=== PATIENT | female | born 1960 | race Two or more races ===

== ENCOUNTER 2022-12-24 19:15 | Emergency (ER) | payer OTHER ==
[~2022-12-24] VITALS: Ht 162.6 cm; Wt 64.0 kg
--- NOTE | 2022-12-24 20:09 | NUR ---
[facility] AT PT'S BEDSIDE
--- NOTE | 2022-12-24 20:32 | NUR ---
[facility] GO (SON)
[2022-12-24 20:58] LABS: BASOPHILS % (AUTO) 0.2 % (0.0-2.0); EOSINOPHILS % (AUTO) 0.1 % (0.0-6.0); HEMATOCRIT 39 % (33-45); HEMOGLOBIN 12.5 g/dL (11.5-14.8); LYMPHOCYTES % (AUTO) 9.5 % (20.0-44.0); MEAN CORPUSCULAR HGB CONC 33 g/dl (31.0-36.0); MEAN CORPUSCULAR VOLUME 88 fL (82-100); MONOCYTES # (AUTO) 1.3 K/uL (0.1-1.30); MONOCYTES % (AUTO) 6.2 % (2.0-12.0); NEUTROPHILS # (AUTO) 18.1 K/uL (1.8-8.9); PLATELET COUNT (AUTO) 288 K/uL (150-450); WHITE BLOOD COUNT (AUTO) 21.6 K/uL (4.3-11.0)
[2022-12-24] MEDS ORDERED: MORPHINE SULFATE INJ 4 MG/ML DISP.SYRIN ONE (21:01)
[2022-12-24] MEDS ORDERED: LORAZEPAM INJ 2 MG/ML VIAL ONE (21:01)
[2022-12-24] MEDS ORDERED: ONDANSETRON HCL/PF 4 MG/2 ML VIAL ONE (21:01)
[2022-12-24] MEDS: IV NS 0.9% 1,000 ML BAG IV ONE (21:06)
[2022-12-24] MEDS: LORAZEPAM INJ 2 MG/ML VIAL IV ONE (21:06)
[2022-12-24] MEDS: MORPHINE SULFATE INJ 2 MG/ML DISP.SYRIN IV ONE (21:06)
[2022-12-24] MEDS: ONDANSETRON HCL/PF 4 MG/2 ML VIAL IVP ONE (21:07)
[2022-12-24 21:09] LABS: CALCIUM, SERUM 8.7 mg/dL (8.5-10.1); CARBON DIOXIDE 25 mmol/L (21-32); CHLORIDE 106 mmol/L (98-107); CREATININE 0.9 mg/dL (0.6-1.3); GLUCOSE 162 mg/dL (74-106); POTASSIUM 3.1 mmol/L (3.5-5.1); SODIUM SERUM 140 mmol/L (136-145); UREA NITROGEN, BLOOD 28 mg/dL (7-18)
[2022-12-24 21:15] LABS: ALANINE AMINOTRANSFERASE 39 U/L (12-78); ALBUMIN 3.6 g/dL (3.4-5.0); ALKALINE PHOSPHATASE 95 U/L (46-116); ASPARTATE AMINOTRANSFERASE 33 U/L (15-37); BILIRUBIN,DIRECT 0.1 mg/dL (0.0-0.2); BILIRUBIN,TOTAL 0.3 mg/dL (0.2-1.0); LIPASE 119 U/L (73-393); TOTAL PROTEIN, SERUM 7.1 g/dL (6.4-8.2)
[2022-12-24] MEDS ORDERED: IV NS 0.9% 250 ML IV ONE (21:16)
[2022-12-24] MEDS ORDERED: IOHEXOL-300 100 ML VIAL IV ONE (21:16)
[2022-12-24] MEDS ORDERED: CT SWABBABLE VALVE TRANS SET 1 EA INFUS.SET MC ONE (21:16)
--- NOTE | 2022-12-24 21:27 | NUR ---
PT TAKEN TO CT VIA [facility]
--- NOTE | 2022-12-24 22:41 | NUR ---
[facility]WAIT[facility]
--- NOTE | 2022-12-24 23:00 | NUR ---
CALLED [facility] SPOKE TO [place]ERTO, FAXED CLINICALS AND FACESHEET
[2022-12-24] MEDS ORDERED: HYDROMORPHONE 1 MG/1 ML DISP.SYRIN ONE (23:17)
[2022-12-24] MEDS: HYDROMORPHONE 1 MG/1 ML DISP.SYRIN IV ONE (23:18)
--- NOTE | 2022-12-24 23:38 | NUR ---
CALLED [facility] REGARDING TRANSFER FOR HIGHER LEVEL OF CARE. FAXED FACE SHEET AND CLINCALS
--- NOTE | 2022-12-24 23:50 | NUR ---
CALLED [facility] SPOKE TO [facility]
--- NOTE | 2022-12-24 23:51 | NUR ---
CALLED [facility], [facility]
--- NOTE | 2022-12-25 00:06 | NUR ---
[facility] CALLED TO INFORM THAT THEIR NEUROLOGIST DR LINDA COURTNEY DECLINED THIS CASE DUE TO THEM NOT REQUIRING ANY SURGICAL INTERVENTION. MADE AWARE.
--- NOTE | 2022-12-25 00:06 | NUR ---
COVID SWAB DONE AND SENT TO LAB
--- NOTE | 2022-12-25 00:18 | NUR ---
KA[facility] FROM [facility] CALLED ABOUT TRANSFER UPDATE AND WOULD LIKE A CALLBACK IF A [facility] ACCEPTS
--- NOTE | 2022-12-25 00:45 | NUR ---
TY FROM [facility] CALLED BACK AND PT WAS ACCEPTED UNDER CARE OF DR. MAYBERRY. WILL ATTEMPT TO SET UP TRANSPORT
--- NOTE | 2022-12-25 00:50 | NUR ---
CALLED ALL [facility] FOR ALS TRANSPORT BUT NO AVAILABILITIES UNTIL 9 AM 12/25/22
[2022-12-25 00:51] VITALS: BP 132/84
--- NOTE | 2022-12-25 00:54 | NUR ---
CALLED [facility] AND SPOKE WITH [facility] TO SET UP ALS TRANSPORT. ETA WITHIN THE HOUR
--- NOTE | 2022-12-25 01:29 | NUR ---
REPORT GIVEN TO SAYRA HEAD OF [facility] AT [phone].
--- NOTE | 2022-12-25 01:54 | NUR ---
[facility] AT PT'S BEDSIDE; REPORT GIVEN TO NIDA COOK EMT
--- NOTE | 2022-12-25 02:04 | NUR ---
PT TRANSFERRED TO [facility] VIA BLS. VS WNL.
== END 2022-12-25 02:06 | disposition short-term general hospital (02) ==
LOC: ER 19:26 → EDBD 19:26 → ER 12-25 02:06
DX: S22.060A Wedge compression fracture of T7-T8 vertebra, initial encounter for closed fracture (principal); S12.600A Unspecified displaced fracture of seventh cervical vertebra, initial encounter for closed fracture; S22.019A Unspecified fracture of first thoracic vertebra, initial encounter for closed fracture; D72.829 Elevated white blood cell count, unspecified; E87.6 Hypokalemia; R73.9 Hyperglycemia, unspecified; R94.31 Abnormal electrocardiogram [ECG] [EKG]; G43.909 Migraine, unspecified, not intractable, without status migrainosus; M19.90 Unspecified osteoarthritis, unspecified site; Z20.822 Contact with and (suspected) exposure to COVID-19; Z60.2 Problems related to living alone; V49.40XA Driver injured in collision with unspecified motor vehicles in traffic accident, initial encounter; Y93.89 Activity, other specified; Y92.410 Unspecified street and highway as the place of occurrence of the external cause; Y99.8 Other external cause status
CPT/HCPCS: 99291; 72125; 96374; 96375; 96361; 93005; 71260; 70450; 74177; 85025; 80048; 83690; 80076; 84484; 87426; J2060; J2270; J2405; J7030; J7050; Q9967; J1170; C9803; 36415